=== PATIENT | female | born 1940 | race Caucasian/White ===

== ENCOUNTER → 2019-06-12 | Day surgery (SDC) | payer OTHER ==
[~2019-06-12] VITALS: Ht 165.1 cm; Wt 79.4 kg
[~2019-06-12] MED LIST: ACTOS15 M1 PO; AMLODIPINE BESY10 MG PO; GLIPIZIDE10 M1 PO; METFORMIN HYDR500 MG PO; VALSARTAN320 MG PO
[2019-06-12 06:30] VITALS: BP 166/73
[2019-06-12 08:07] VITALS: BP 140/62
[2019-06-12 08:13] VITALS: BP 147/64
[2019-06-12 08:28] VITALS: BP 162/67
== END | disposition home or self-care (01) ==
LOC: SDC 06-06 08:00
DX: H25.811 Combined forms of age-related cataract, right eye (principal); I10 Essential (primary) hypertension; E11.36 Type 2 diabetes mellitus with diabetic cataract

== ENCOUNTER → 2019-07-03 | Day surgery (SDC) | payer OTHER ==
[~2019-07-03] VITALS: Ht 165.1 cm; Wt 79.4 kg
[2019-07-03 08:51] VITALS: BP 147/64
[2019-07-03 09:05] VITALS: BP 146/77
[2019-07-03 09:21] VITALS: BP 146/72
== END | disposition home or self-care (01) ==
LOC: SDC 06-27 08:45
DX: H25.812 Combined forms of age-related cataract, left eye (principal); I10 Essential (primary) hypertension; Z79.84 Long term (current) use of oral hypoglycemic drugs; Z79.899 Other long term (current) drug therapy

== ENCOUNTER → 2024-09-02 | Outpatient (CLI) | payer OTHER | END | disposition home or self-care (01) | LOC: CARD 09:24 | PROVIDERS: ATTEND Internal Medicine Cardiovascular Disease | DX: Z01.810 Encounter for preprocedural cardiovascular examination (principal); R94.31 Abnormal electrocardiogram [ECG] [EKG]; I70.0 Atherosclerosis of aorta ==

== ENCOUNTER → 2024-09-12 | Outpatient (CLI) | payer OTHER | END | disposition home or self-care (01) | LOC: RAD 10:16 | PROVIDERS: ATTEND Orthopaedic Surgery | DX: Z01.810 Encounter for preprocedural cardiovascular examination (principal); J98.11 Atelectasis ==

== ENCOUNTER 2025-01-15 13:18 | Emergency (ER) | payer OTHER ==
[~2025-01-15] VITALS: Ht 165.1 cm; Wt 67.1 kg
[2025-01-15] MEDS ORDERED: NITROGLYCERIN 1 IN PACKET T ONE (13:35)
[2025-01-15] MEDS ORDERED: Clopidogrel Hydrogen Sulfate 75 MG TAB NG ONE (13:35)
[2025-01-15 13:50] LABS: MEAN CELL VOLUME 91.7 fl (81.0-99.0); MEAN CORPUSCULAR HGB 28.9 pg (27.0-31.0); MEAN PLATELET VOLUME 10.1 fl (9.6-12.3); NUCLEATED RED BLOOD CELL 0.0 % (0.0-0.0); NUCLEATED RED BLOOD CELL 0.0 10*3/uL (0.0-0.0); PLATELET COUNT AUTOMATED 414 10*3/uL (130-400); RED CELL DISTRI WIDTH 13.3 % (0-14.5)
[2025-01-15] MEDS ORDERED: CELECOXIB200 M1 PO (13:51)
[2025-01-15 14:00] LABS: MANUAL DIFF REFLEX YES
[2025-01-15 14:30] LABS: PLATELET SUFFICIENCY HIGH (NORMAL)
== END 2025-01-15 13:58 | disposition short-term general hospital (02) ==
LOC: ED 13:18
PROVIDERS: Emergency Medicine
DX: I21.3 ST elevation (STEMI) myocardial infarction of unspecified site (principal); R07.2 Precordial pain; I25.2 Old myocardial infarction; I10 Essential (primary) hypertension; Z91.040 Latex allergy status; Z96.649 Presence of unspecified artificial hip joint; Z90.49 Acquired absence of other specified parts of digestive tract

== ENCOUNTER → 2025-02-28 | Outpatient (CLI) | payer OTHER ==
[~2025-02-28] MED LIST changes: +CELECOXIB200 M1 PO
== END | disposition home or self-care (01) ==
LOC: WOUNDCARE 03:41
PROVIDERS: ATTEND Nurse Practitioner Family
DX: L89.610 Pressure ulcer of right heel, unstageable (principal); L89.620 Pressure ulcer of left heel, unstageable; E11.9 Type 2 diabetes mellitus without complications; I87.2 Venous insufficiency (chronic) (peripheral); M19.90 Unspecified osteoarthritis, unspecified site; Z98.890 Other specified postprocedural states; Z79.4 Long term (current) use of insulin; Z79.84 Long term (current) use of oral hypoglycemic drugs; Z79.899 Other long term (current) drug therapy

== ENCOUNTER 2025-03-21 11:20 | Inpatient (IN) | payer OTHER ==
[~2025-03-21] VITALS: Ht 165 cm; Wt 62.8 kg
[2025-03-21] VITALS (10 sets, daily range): BP systolic 99–124; BP diastolic 47–76
[2025-03-21 12:28] LABS: BASO # 0.1 10*3/uL (0.0-0.1); BASO % 0.8 % (0.0-1.0); EOS # 0.3 10*3/uL (0.0-0.4); EOS % 3.3 % (1.0-4.0); MEAN CELL VOLUME 90.0 fl (81.0-99.0); MEAN CORPUSCULAR HGB 28.5 pg (27.0-31.0); MEAN PLATELET VOLUME 9.2 fl (9.6-12.3); MONO # 0.5 10*3/uL (0.1-1.0); MONO % 5.5 % (3.0-9.0); NEUT # 7.0 10*3/uL (2.3-7.9); NEUT % 80.7 % (47.0-73.0); NUCLEATED RED BLOOD CELL 0.0 % (0.0-0.0); NUCLEATED RED BLOOD CELL 0.0 10*3/uL (0.0-0.0); PLATELET COUNT AUTOMATED 389 10*3/uL (130-400); RED CELL DISTRI WIDTH 15.4 % (0-14.5)
[2025-03-21 12:48] LABS: BUN 63.0 mg/dl (9-23); CPK 35.0 U/L (34-171)
[2025-03-21] MEDS ORDERED: NITROGLYCERIN 1 IN PACKET T ONE (13:05)
[2025-03-21] MEDS ORDERED: ASPIRIN, CHEWABLE 81 MG TAB PO ONE (13:05)
[2025-03-21] MEDS ORDERED: FUROSEMIDE 40 MG/4 ML VIAL IV ONE (13:05)
[2025-03-21] MEDS ORDERED: Ondansetron Hydrochloride 4 MG/2 ML VIAL IV PRN (13:55)
[2025-03-21] MEDS ORDERED: ACETAMINOPHEN 650 MG SUPP R PRN (13:55)
[2025-03-21] MEDS ORDERED: BISACODYL 10 MG SUPP R PRN (13:55)
[2025-03-21] MEDS ORDERED: ACETAMINOPHEN 325 MG TAB PO PRN (13:55)
[2025-03-21] MEDS ORDERED: VITAMIN C500 M8 PO (13:55)
[2025-03-21] MEDS ORDERED: BISACODYL 5 MG TAB PO PRN (13:55)
[2025-03-21] MEDS ORDERED: Acetaminophen/Hydrocodone 5 MG/325 MG TABLET PO PRN (13:55)
[2025-03-21] MEDS ORDERED: LIPITOR80 MG PO (13:56)
[2025-03-21] MEDS ORDERED: BUMETANIDE1 MG PO (13:57)
[2025-03-21] MEDS ORDERED: CLOPIDOGREL75 MG PO (13:59)
[2025-03-21] MEDS ORDERED: D3 PLUS K2 DOT1 EACH PO (13:59)
[2025-03-21] MEDS ORDERED: MAGNESIUM OXID400 MG PO (14:02)
[2025-03-21] MEDS ORDERED: ISORDIL10 M1 PO (14:02)
[2025-03-21] MEDS ORDERED: METOPROLOL SUCC25 M2 PO (14:03)
[2025-03-21] MEDS ORDERED: Ondansetron4 MG PO (14:04)
[2025-03-21] MEDS ORDERED: PROTONIX40 MG PO (14:04)
[2025-03-21] MEDS ORDERED: LANTUS SOL100 UNIT/1 SQ (14:06)
[2025-03-21] MEDS ORDERED: DEXTROSE 50% 25 GM/50 ML VIAL IV PRN (14:40)
[2025-03-21] MEDS ORDERED: INSULIN LISPRO 1 UNIT/0.01 ML SQ SCH (16:30)
[2025-03-21] MEDS ORDERED: HEPARIN SODIUM 250 ML IV SCH (16:40)
[2025-03-21] MEDS ORDERED: SODIUM CHLORIDE 0.9% 500 ML IV ONE (18:35)
[2025-03-21] MEDS ORDERED: METOPROLOL SUCCINATE XR 25 MG TAB PO SCH (22:00)
[2025-03-21] MEDS ORDERED: FOAM BANDAGE 1 EACH BANDAGE T ONE (22:15)
[2025-03-21] MEDS ORDERED: ASPIRIN ADULT L81 M2 PO (22:45)
[2025-03-21] MEDS ORDERED: AMIODARONE HYD200 MG PO (22:48)
[2025-03-22] VITALS: BP 115/58
[2025-03-22] MEDS ORDERED: Albuterol Sulf/Ipratropium 3 ML VIAL NEB ONE (02:00)
[2025-03-22 02:03] VITALS: BP 104/59
[2025-03-22] MEDS ORDERED: Albuterol Sulf/Ipratropium 3 ML VIAL NEB SCH (05:00)
[2025-03-22 05:06] LABS: BUN 65.0 mg/dl (9-23); SGPT/ALT 10.0 U/L (5-49)
[2025-03-22 07:50] LABS: BASO # 0.1 10*3/uL (0.0-0.1); BASO % 1.0 % (0.0-1.0); EOS # 0.3 10*3/uL (0.0-0.4); EOS % 3.3 % (1.0-4.0); MEAN CELL VOLUME 87.5 fl (81.0-99.0); MEAN CORPUSCULAR HGB 28.5 pg (27.0-31.0); MEAN PLATELET VOLUME 9.8 fl (9.6-12.3); MONO # 0.8 10*3/uL (0.1-1.0); MONO % 9.1 % (3.0-9.0); NEUT # 6.7 10*3/uL (2.3-7.9); NEUT % 73.1 % (47.0-73.0); NUCLEATED RED BLOOD CELL 0.0 % (0.0-0.0); NUCLEATED RED BLOOD CELL 0.0 10*3/uL (0.0-0.0); PLATELET COUNT AUTOMATED 388 10*3/uL (130-400); RED CELL DISTRI WIDTH 15.5 % (0-14.5)
[2025-03-22 08:00] VITALS: BP 122/61
[2025-03-22] MEDS ORDERED: ATORVASTATIN CALCIUM 80 MG TAB PO SCH (10:00)
[2025-03-22] MEDS ORDERED: BUMETANIDE 1 MG/4 ML VIAL IV SCH (10:00)
[2025-03-22] MEDS ORDERED: MAGNESIUM OXIDE 400 MG TAB PO SCH (10:00)
[2025-03-22] MEDS ORDERED: Clopidogrel Hydrogen Sulfate 75 MG TAB PO SCH (10:00)
[2025-03-22] MEDS ORDERED: Amiodarone Hydrochloride 200 MG TAB PO SCH (10:00)
[2025-03-22] MEDS ORDERED: ASPIRIN ENTERIC COATED 81 MG TAB PO SCH (10:00)
[2025-03-22] MEDS ORDERED: FOAM BANDAGE 1 EACH BANDAGE T ONE (11:30)
[2025-03-22 12:00] VITALS: BP 132/74
[2025-03-22 14:08] LABS: BILIRUBIN Negative (Negative); BLOOD 3+ (Negative); CLARITY Clear (Clear); COLOR Yellow (Yellow); KETONE Negative (Negative); LEUKO ESTERASE Trace (Negative); NITRITE Negative (Negative); PH 5.0 (4.5-8.0); SPECIFIC GRAVITY 1.010 (1.001-1.030); UROBILINOGEN 0.2 E.U./dl (0.0-1.0)
[2025-03-22 14:37] LABS: BACTERIA 3+; RBC TNTC rbc/hpf (0-2)
[2025-03-22 14:38] LABS: EPITHELIAL CELLS 0-2
[2025-03-22 16:00] VITALS: BP 114/47
[2025-03-22 20:00] VITALS: BP 114/53
[2025-03-22] MEDS ORDERED: HEPARIN SODIUM 5,000 UNIT/ML VIAL SC SCH (22:00)
[2025-03-23] VITALS: BP 99/51
[2025-03-23 06:23] LABS: BASO # 0.1 10*3/uL (0.0-0.1); BASO % 0.8 % (0.0-1.0); EOS # 0.3 10*3/uL (0.0-0.4); EOS % 2.6 % (1.0-4.0); MEAN CELL VOLUME 88.7 fl (81.0-99.0); MEAN CORPUSCULAR HGB 28.7 pg (27.0-31.0); MEAN PLATELET VOLUME 9.4 fl (9.6-12.3); MONO # 0.9 10*3/uL (0.1-1.0); MONO % 8.8 % (3.0-9.0); NEUT # 7.4 10*3/uL (2.3-7.9); NEUT % 74.5 % (47.0-73.0); NUCLEATED RED BLOOD CELL 0.0 % (0.0-0.0); NUCLEATED RED BLOOD CELL 0.0 10*3/uL (0.0-0.0); PLATELET COUNT AUTOMATED 404 10*3/uL (130-400); RED CELL DISTRI WIDTH 15.8 % (0-14.5)
[2025-03-23 06:26] LABS: BUN 61.0 mg/dl (9-23)
[2025-03-23 08:00] VITALS: BP 114/52
[2025-03-23 11:45] VITALS: BP 110/52
[2025-03-23 12:00] VITALS: BP 111/50
[2025-03-23 16:00] VITALS: BP 116/51
[2025-03-23 20:00] VITALS: BP 103/62
[2025-03-24] VITALS: BP 118/59
[2025-03-24 08:00] VITALS: BP 108/66
[2025-03-24] MEDS ORDERED: BUMETANIDE 1 MG/4 ML VIAL IV SCH (10:00)
[2025-03-24 12:00] VITALS: BP 111/47
[2025-03-24] MEDS ORDERED: FOAM BANDAGE HEEL T ONE (15:39)
[2025-03-24] MEDS ORDERED: LEPTOSPERMUM HONEY 4 X 5 INCH WOUND DRESSING T ONE (15:40)
[2025-03-24] MEDS ORDERED: FOAM BANDAGE 5X5 T ONE (15:40)
[2025-03-24] MEDS ORDERED: CHAIR CUSHION DEVICE ONE (15:44)
[2025-03-24 16:00] VITALS: BP 105/46
[2025-03-24] MEDS ORDERED: FOAM BANDAGE 1 EACH BANDAGE T ONE (17:12)
[2025-03-24 20:00] VITALS: BP 114/52
[2025-03-25] VITALS: BP 90/67
[2025-03-25 05:04] VITALS: BP 101/84
[2025-03-25] MEDS ORDERED: FUROSEMIDE 20 MG/2 ML VIAL IV ONE (05:05)
[2025-03-25 05:27] VITALS: BP 130/56
[2025-03-25 06:03] LABS: BASO # 0.1 10*3/uL (0.0-0.1); BASO % 0.8 % (0.0-1.0); EOS # 0.4 10*3/uL (0.0-0.4); EOS % 3.4 % (1.0-4.0); MEAN CELL VOLUME 89.8 fl (81.0-99.0); MEAN CORPUSCULAR HGB 28.0 pg (27.0-31.0); MEAN PLATELET VOLUME 9.4 fl (9.6-12.3); MONO # 0.8 10*3/uL (0.1-1.0); MONO % 7.7 % (3.0-9.0); NEUT # 8.3 10*3/uL (2.3-7.9); NEUT % 75.6 % (47.0-73.0); NUCLEATED RED BLOOD CELL 0.0 % (0.0-0.0); NUCLEATED RED BLOOD CELL 0.0 10*3/uL (0.0-0.0); PLATELET COUNT AUTOMATED 507 10*3/uL (130-400); RED CELL DISTRI WIDTH 15.7 % (0-14.5)
[2025-03-25 06:18] LABS: BUN 54.0 mg/dl (9-23)
[2025-03-25 08:00] VITALS: BP 122/52
[2025-03-25] MEDS ORDERED: BUMETANIDE 1 MG TAB PO SCH (09:00)
[2025-03-25] MEDS ORDERED: BUMETANIDE 1 MG/4 ML VIAL IV SCH (10:00)
[2025-03-25 12:00] VITALS: BP 121/58
[2025-03-25 16:00] VITALS: BP 103/43
== END 2025-03-25 18:40 | disposition short-term general hospital (02) | DRG 280 ==
LOC: ED 11:20 → EDHOLD 13:09 → 5E 13:09
PROVIDERS: Emergency Medicine; Student in an Organized Health Care Education/Training Program; ADMIT Internal Medicine; ATTEND Internal Medicine
PROC: 30233N1 Transfusion of Nonautologous Red Blood Cells into Peripheral Vein, Percutaneous Approach (ICD-10-PCS; principal; 2025-03-21)
PROC: 0HB6XZZ Excision of Back Skin, External Approach (ICD-10-PCS; 2025-03-25)
DX: I21.4 Non-ST elevation (NSTEMI) myocardial infarction (principal); E43 Unspecified severe protein-calorie malnutrition; L89.153 Pressure ulcer of sacral region, stage 3; I50.21 Acute systolic (congestive) heart failure; N17.0 Acute kidney failure with tubular necrosis; I13.0 Hypertensive heart and chronic kidney disease with heart failure and stage 1 through stage 4 chronic kidney disease, or unspecified chronic kidney disease; N18.4 Chronic kidney disease, stage 4 (severe); E87.1 Hypo-osmolality and hyponatremia; N39.0 Urinary tract infection, site not specified; Z16.12 Extended spectrum beta lactamase (ESBL) resistance; D64.9 Anemia, unspecified; I25.10 Atherosclerotic heart disease of native coronary artery without angina pectoris; Z66 Do not resuscitate; E11.22 Type 2 diabetes mellitus with diabetic chronic kidney disease; K21.9 Gastro-esophageal reflux disease without esophagitis; E87.8 Other disorders of electrolyte and fluid balance, not elsewhere classified; E11.65 Type 2 diabetes mellitus with hyperglycemia; S51.012A Laceration without foreign body of left elbow, initial encounter; L89.610 Pressure ulcer of right heel, unstageable; L89.620 Pressure ulcer of left heel, unstageable; L89.320 Pressure ulcer of left buttock, unstageable; L89.310 Pressure ulcer of right buttock, unstageable; L89.121 Pressure ulcer of left upper back, stage 1; I27.20 Pulmonary hypertension, unspecified; I07.1 Rheumatic tricuspid insufficiency; E78.2 Mixed hyperlipidemia; F41.9 Anxiety disorder, unspecified; Z79.82 Long term (current) use of aspirin; Z91.040 Latex allergy status; Z79.899 Other long term (current) drug therapy; Z95.5 Presence of coronary angioplasty implant and graft; Z79.01 Long term (current) use of anticoagulants; Z79.2 Long term (current) use of antibiotics; Z90.49 Acquired absence of other specified parts of digestive tract; Z79.4 Long term (current) use of insulin; Z98.42 Cataract extraction status, left eye; Z98.41 Cataract extraction status, right eye; Z82.61 Family history of arthritis; Z82.49 Family history of ischemic heart disease and other diseases of the circulatory system; X58.XXXA Exposure to other specified factors, initial encounter; Y93.89 Activity, other specified; Y92.89 Other specified places as the place of occurrence of the external cause; Y99.8 Other external cause status; Z68.23 Body mass index [BMI] 23.0-23.9, adult

== ENCOUNTER 2025-04-19 13:56 | Emergency (ER) | payer OTHER ==
[~2025-04-19] VITALS: Ht 160 cm; Wt 59.0 kg
[~2025-04-19 13:56] MED LIST changes: +AMIODARONE HYD200 MG PO; +ASPIRIN ADULT L81 M2 PO; +BUMETANIDE1 MG PO; +CLOPIDOGREL75 MG PO; +D3 PLUS K2 DOT1 EACH PO; +ISORDIL10 M1 PO; +LANTUS SOL100 UNIT/1 SQ; +LIPITOR80 MG PO; +MAGNESIUM OXID400 MG PO; +METOPROLOL SUCC25 M2 PO; +Ondansetron4 MG PO; +PROTONIX40 MG PO; +VITAMIN C500 M8 PO
[2025-04-19] MEDS ORDERED: Oxymetazoline Hydrochloride Nasal 15 ml bottle NAS ONE (14:00)
[2025-04-19] MEDS ORDERED: COCAINE 4% T ONE (15:00)
[2025-04-19] MEDS ORDERED: TRANEXAMIC ACID 1,000 MG/10 ML VIAL NAS ONE (15:25)
== END 2025-04-19 18:17 | disposition home or self-care (01) ==
LOC: ED 13:56
DX: R04.0 Epistaxis (principal); I10 Essential (primary) hypertension; I25.2 Old myocardial infarction; Z90.49 Acquired absence of other specified parts of digestive tract; Z90.89 Acquired absence of other organs; Z91.040 Latex allergy status